=== PATIENT | male | born 1985 | race Caucasian/White ===

== ENCOUNTER 2020-04-15 12:51 | Observation (INO) ==
[2020-04-15] MEDS ORDERED: PROCHLORPERAZINE EDISYLATE 5 MG/ML VIAL IV ONE (12:56)
[2020-04-15] MEDS ORDERED: KETOROLAC TROMETHAMINE 30 MG/ML VIAL IV ONE (12:56)
[2020-04-15] MEDS ORDERED: diphenhydrAMINE HCL 50 MG/ML VIAL IV ONE ×2 (12:56→14:45)
[2020-04-15] MEDS ORDERED: NORMAL SALINE 1,000 ML IV ONE ×2 (12:56→15:56)
[2020-04-15] MEDS ORDERED: PANTOPRAZOLE SODIUM 40 MG/100 ML PIGGYBACK IV ONE (13:09)
--- NOTE | 2020-04-15 13:09 | ERNOTE ---
ER Male HPI Date of Service: 04/15/20 Stated Complaint: abd pain ER Male: other - abdominal pain Time Seen by Provider: 04/15/20 12:52 Source: patient Exam Limitations: no limitations Immunizations: IMMUNIZATION HX Immunizations Up to Date Yes History of Influenza Vaccine No Hx Pneumococcal Vaccination No Allergies/Adverse Reactions: Allergies bee venom protein (honey bee) Allergy (Severe, Verified 04/15/20 12:53) Swelling of Throat Penicillins Allergy (Severe, Verified 04/15/20 12:53) throat swelling Home Medications: HOME MEDICATIONS Albuterol Sulfate [Ventolin Hfa] 1 puff INHALATION QID PRN #1 [email or web address] 12/09/18 [Last Taken Unknown] - History of Present Illness Narrative: Patient presents to the ED via EMS for severe abdominal pain. This has been going on for 2 days. Severe left sided pain from his left flank to his left testicle. Nausea. Pain severe constant for 2 days. He is not sure if he has ever had anything like this before. Nothing particularly makes this better or worse. Has not seen anyone else for this. Timing: Present: constant Quality: Present: severe Onset Location: Present: other - left flank to left testicle Radiation: Present: other - left testicle Activities at Onset: Present: none Prior Abdominal Problems: Absent: similar symptoms Modifying Factors - (Improves): Present: other - nothing Modifying Factors - (Worsens): Present: other - nothing Associated Symptoms: Present: nausea, abdominal pain. Absent: fever/chills, dysuria, loss of bladder control Prior Treatment: Absent: recently seen Review of Systems - Review of Systems Constitutional: Absent: fever EYE: Present: no symptoms reported ENT: Present: no symptoms reported Respiratory: Present: cough Cardiology: Absent: chest pain Gastrointestinal/Abdominal: Present: See HPI Genitourinary: Absent: dysuria Neurological: Absent: weakness All Other Systems: All systems neg except as marked Medical History (Last Reviewed 04/15/20 @ 13:07 by Tony Cid MD) Asthma Surgical History: Surgical History (Last Reviewed 04/15/20 @ 13:07 by Tony Cid MD) History of esophagogastroduodenoscopy (EGD) No pertinent past medical history Family History: Family History (Last Reviewed 04/15/20 @ 13:07 by Tony Cid MD) Other No pertinent family history Social History: (Last Reviewed 04/15/20 @ 13:07 by Tony Cid MD) Tobacco: Smoking Status: Light tobacco smoker Alcohol: alcohol intake: never Substance Use: substance use type: does not use Physical Exam - Physical Exam General Appearance: Present: alert, moderate distress, other - due to pain Head Exam: Present: normal inspection, no evidence of injury Eye Exam: Normal inspection: bilateral, PERRL: bilateral Ears, Nose, Throat: Present: normal ENT inspection Neck: Present: normal inspection Respiratory: Present: no respiratory distress, normal breath sounds, no accessory muscle use, lungs clear Cardiovascular/Chest: Present: regular rate, rhythm, normal peripheral pulses Gastrointestinal/Abdominal: Present: normal bowel sounds, nondistended, soft, other - difuse left abdominal tenderness Male Genitals Exam: Present: testicular tenderness (L) Back Exam: Present: CVA tenderness (L) Extremity Exam: Present: normal inspection, normal range of motion Neurological Exam: Present: alert, no motor/sensory deficits, financial controller II-XII nml as tested Skin Exam: Present: normal color, warm/dry Progress - Results and Orders Patient's Lab Results:: I have reviewed the patient's lab results. - Vital Signs Patient's Vital Signs:: I have reviewed the patient's vital signs. Vital Signs: Vital Signs 04/15/20 12:51 Temperature 36.0 C Pulse Rate 79 Respiratory Rate 16 Blood Pressure 142/69 H O2 Sat by Pulse Oximetry 99 - CT/Ultrasound CT/Ultrasound Narrative: I reviewed the US report and CT report per radiology - Progress/Reassessment Chief Complaint: Genitourinary Problem Progress Note-Subjective: 04/15/20 16:23 Patient given IV toradol, antiemetics, tylenol, morphine. Still with severe pain despite meds. I Halo'd Dr Holder, Will admit here for NPO and pain control. He will plan on stenting tomorrow at 10am. Patient is agreeable, having too much pain to go home. I spoke with Dr Sibley who will admit with Urology consultation. Departure Clinical Impression: Ureterolithiasis, Intractable pain, Hydroureter - Departure Disposition: Still a patient Condition: Fair
[2020-04-15 13:12] LABS: Hematocrit 43.4 % (42.0-52.0); Mean Cell Volume 94.1 fl (78-100); Mean Corpuscular Hemoglobin 30.4 pg (27-31); Mean Corpuscular Hgb Conc 32.3 g/dl (32-36); Mean Platelet Volume 9.7 fl (8-11.3); Neutrophil # 4.8 K/mm3 (1.3-6.0); Platelet Count 214 K/mm3 (150-450); Red Blood Count 4.61 M/mm3 (4.7-6.0); Red Cell Distribution Width 12.1 % (11.5-14.0); White Blood Count 7.6 K/mm3 (4.0-10.5)
[2020-04-15 13:20] LABS: Cocaine Ur Negative (NEGATIVE); Urine Barbiturate Negative (NEGATIVE); Urine Benzodiazepines Negative (NEGATIVE); Urine Opiates Negative (NEGATIVE); Urine PCP Negative (NEGATIVE); Urine THC Negative (NEGATIVE)
[2020-04-15 13:24] LABS: ALT 53 U/L (19-67); AST 33 U/L (0-48); Albumin * 3.3 gm/dl (3.4-5.0); Alkaline Phosphatase * 67 U/L (50-170); Anion Gap 10.3 mmol/L (6.8-13.8); BUN/Creatinine Ratio 9.7 (9.0-21.6); Bilirubin, Total 0.2 mg/dL (0.0-1.1); Blood Urea Nitrogen 14 mg/dL (6-23); Ca. Corrected For Albumin 9.6 mg/dL (8.4-10.2); Calcium * 9.4 mg/dL (7.9-10.9); Carbon Dioxide 27.6 mmol/L (24-32.6); Chloride 105 mmol/L (97-106); Glucose * 93 mg/dL (70-110); Lipase 94 U/L (73-393); Potassium 3.9 mmol/L (3.4-4.6); Sodium 139 mmol/L (132-142); Total Protein 7.3 gm/dL (6.2-8.2)
[2020-04-15 13:30] LABS: Urine Appearance Clear (CLEAR); Urine Bilirubin Negative (NEGATIVE); Urine Color Yellow; Urine Ketone Negative (NEGATIVE)
[2020-04-15 13:31] LABS: Urine Bacteria None Seen; Urine Blood 150 /ul (NEGATIVE); Urine Nitrite Negative (NEGATIVE); Urine Protein Negative (NEGATIVE); Urine Urobilinogen Normal (NORMAL); Urine WBC None Seen /hpf (0-5)
[2020-04-15] MEDS ORDERED: ACETAMINOPHEN 1,000 MG/100 ML BTL IV ONE (14:45)
[2020-04-15] MEDS ORDERED: MORPHINE SULFATE 4 MG/ML SYRG IV ONE (15:27)
[2020-04-15] MEDS ORDERED: MORPHINE SULFATE 4 MG/ML SYRG ONE (15:28)
--- NOTE | 2020-04-15 19:15 | HP ---
Chief Complaint - Chief Complaint Date of Service: 04/15/20 Time of Service: 19:14 Chief Complaint: left flank pain History of Present Illness: History obtained from ERP, chart, and limited info from patient, as he declined to answer many of my questions. He'd been having 3 days of left flank and testicle pain. Denies having previous renal stones. Work up in the ED found a 7 mm calculus distal left ureteral calculus with moderate left hyd roureteronephrosis. Urology was contacted, and he is scheduled to go to the OR tomorrow. He denies CP or shortness of breath, and has a history of asthma. He reports using his inhaler 5 times a day. Also smokes 5 cigarettes a day. Denies alcohol or drug use. His admission UDS was positive for amphetamines, however many OTC meds can cause a positive amphetamine result on a UDS. Medical History (Last Reviewed 04/15/20 @ 13:07 by Tony Cid MD) Asthma Surgical History: Surgical History (Last Reviewed 04/15/20 @ 13:07 by Tony Cid MD) History of esophagogastroduodenoscopy (EGD) No pertinent past medical history Family History: Family History (Last Reviewed 04/15/20 @ 13:07 by Tony Cid MD) Other No pertinent family history Social History: (Last Reviewed 04/15/20 @ 13:07 by Tony Cid MD) Tobacco: Smoking Status: Light tobacco smoker Alcohol: alcohol intake: never Substance Use: substance use type: does not use Review Of Systems (GEN) - Review of Systems Respiratory: Absent: Cough, Shortness of Breath Cardiac: Absent: Chest Pain Abdominal: Present: Abdominal Pain Immunizations: IMMUNIZATION HX Immunizations Up to Date Yes History of Influenza Vaccine No Hx Pneumococcal Vaccination No Allergies/Adverse Reactions: Allergies Allergy/AdvReac Type Severity Reaction Status Date / Time bee venom protein (honey bee) Allergy Severe Swelling Verified 04/15/20 16:56 of Throat Penicillins Allergy Severe throat Verified 04/15/20 16:56 swelling Home Medications: HOME MEDICATIONS Albuterol Sulfate [Ventolin Hfa] 1 puff INHALATION QID PRN #1 [email or web address] 12/09/18 [Last Taken Unknown] Exam - Exam Vital Signs: Vital Signs - Last Taken Temp 36.4 C 04/15/20 18:10 Pulse 63 10/24/20 18:10 Resp 16 04/15/20 18:10 BP 110/76 04/15/20 18:10 Pulse Ox 98 04/15/20 18:10 Constitutional: Present: No distress, Somnolent, Looks Older than stated age Respiratory: Present: lungs clear, no respiratory distress Cardiovascular/Chest: Present: regular rate, rhythm Abdomen: Present: Normal bowel sounds Extremity: Absent: lower extremity edema Neurologic: Present: other - agitated affect Eye contact: Present: avoids eye contact Diagnostic Studies: Abnormal Lab Results 04/15/20 04/15/20 04/15/20 Range/Units 13:06 13:06 13:06 RBC 4.61 L (4.7-6.0) M/mm3 Eosinophils % 4.1 H (0.0-3.0) % Creatinine 1.44 H (0.4-1.4) mg/dL Est GFR (Non-Af Amer) 59 L D (60-130) mL/min Albumin 3.3 L (3.4-5.0) gm/dl Urine Blood 150 H (NEGATIVE) /ul Urine RBC 10-25 H (0-5) /hpf Urine Amphetamine (NEGATIVE) 04/15/20 Range/Units 13:06 RBC (4.7-6.0) M/mm3 Eosinophils % (0.0-3.0) % Creatinine (0.4-1.4) mg/dL Est GFR (Non-Af Amer) (60-130) mL/min Albumin (3.4-5.0) gm/dl Urine Blood (NEGATIVE) /ul Urine RBC (0-5) /hpf Urine Amphetamine Positive H (NEGATIVE) Laboratory Results WBC 7.6 K/mm3 (4.0-10.5) 04/15/20 13:06 RBC 4.61 M/mm3 (4.7-6.0) L 04/15/20 13:06 Hgb 14.0 gm/dL (13.5-18.0) 04/15/20 13:06 Hct 43.4 % (42.0-52.0) 04/15/20 13:06 MCV 94.1 fl (78-100) 04/15/20 13:06 MCH 30.4 pg (27-31) 04/15/20 13:06 MCHC 32.3 g/dl (32-36) 04/15/20 13:06 RDW 12.1 % (11.5-14.0) 04/15/20 13:06 Plt Count 214 K/mm3 (150-450) 04/15/20 13:06 MPV 9.7 fl (8-11.3) 04/15/20 13:06 Immature Gran % (Auto) 0.10 % (0.001-0.429) 04/15/20 13:06 Immature Gran # (Auto) 0.01 K/mm3 (0.000-0.0310) 04/15/20 13:06 Neutrophils % 63.0 % (42-75.0) 04/15/20 13:06 Lymphocytes % 23.5 % (20-51) 04/15/20 13:06 Monocytes % 8.8 % (0.0-9) 04/15/20 13:06 Eosinophils % 4.1 % (0.0-3.0) H 04/15/20 13:06 Basophils % 0.5 % (0.0-1.0) 04/15/20 13:06 Nucleated RBC % 0.0 k/mm3 (0-1) 04/15/20 13:06 Neutrophils # 4.8 K/mm3 (1.3-6.0) 04/15/20 13:06 Lymphocytes # 1.78 k/mm3 (1.5-3.5) 04/15/20 13:06 Monocytes # 0.7 k/mm3 (0.0-1.0) 04/15/20 13:06 Eosinophils # 0.3 k/mm3 (0.0-0.7) 04/15/20 13:06 Absolute Basophils 0.0 k/mm3 (0.0-0.1) 04/15/20 13:06 Sodium 139 mmol/L (132-142) 04/15/20 13:06 Plasma Sodium 139 mmol/L (130-142) 04/15/20 13:06 Potassium 3.9 mmol/L (3.4-4.6) 04/15/20 13:06 Chloride 105 mmol/L (97-106) 04/15/20 13:06 Carbon Dioxide 27.6 mmol/L (24-32.6) 04/15/20 13:06 Anion Gap 10.3 mmol/L (6.8-13.8) 04/15/20 13:06 BUN 14 mg/dL (6-23) 04/15/20 13:06 Creatinine 1.44 mg/dL (0.4-1.4) H 04/15/20 13:06 Est GFR (Non-Af Amer) 59 mL/min (60-130) L D 04/15/20 13:06 BUN/Creatinine Ratio 9.7 (9.0-21.6) 04/15/20 13:06 Random Glucose 93 mg/dL (70-110) 04/15/20 13:06 Calcium 9.4 mg/dL (7.9-10.9) 04/15/20 13:06 Calcium Adj for Albumin 9.6 mg/dL (8.4-10.2) 04/15/20 13:06 Total Bilirubin 0.2 mg/dL (0.0-1.1) 04/15/20 13:06 AST 33 U/L (0-48) 04/15/20 13:06 ALT 53 U/L (19-67) 04/15/20 13:06 Alkaline Phosphatase 67 U/L (50-170) 04/15/20 13:06 Total Protein 7.3 gm/dL (6.2-8.2) 04/15/20 13:06 Albumin 3.3 gm/dl (3.4-5.0) L 04/15/20 13:06 Lipase 94 U/L (73-393) 04/15/20 13:06 Urine Color Yellow 04/15/20 13:06 Urine Appearance Clear (CLEAR) 04/15/20 13:06 Urine pH 6.0 pH (5.0-7.0) 04/15/20 13:06 Ur Specific Clare 1.020 SP.GR. (1.005-1.030) 04/15/20 13:06 Urine Protein Negative mg/dL (NEGATIVE) 04/15/20 13:06 Urine Glucose (UA) Negative mg/dL (NEGATIVE) 04/15/20 13:06 Urine Ketones Negative mg/dL (NEGATIVE) 04/15/20 13:06 Urine Blood 150 /ul (NEGATIVE) H 04/15/20 13:06 Urine Nitrate Negative (NEGATIVE) 04/15/20 13:06 Urine Bilirubin Negative mg/dl (NEGATIVE) 04/15/20 13:06 Urine Urobilinogen Normal EU/dl (NORMAL) 04/15/20 13:06 Ur Leukocyte Esterase Negative /ul (NEGATIVE) 04/15/20 13:06 Urine RBC 10-25 /hpf (0-5) H 04/15/20 13:06 Urine WBC None seen /hpf (0-5) 04/15/20 13:06 Ur Epithelial Cells None seen /hpf (0-5) 04/15/20 13:06 Urine Bacteria None seen (NONE) 04/15/20 13:06 Urine Culture Comments No culture indicated 04/15/20 13:06 Urine Opiates Screen Negative (NEGATIVE) 04/15/20 13:06 Barbiturate Screen Negative (NEGATIVE) 04/15/20 13:06 Ur Phencyclidine Scrn Negative (NEGATIVE) 04/15/20 13:06 Urine Amphetamine Positive (NEGATIVE) H 04/15/20 13:06 U Benzodiazepines Scrn Negative (NEGATIVE) 04/15/20 13:06 Urine Cocaine Screen Negative (NEGATIVE) 04/15/20 13:06 Urine Marijuana (THC) Negative (NEGATIVE) 04/15/20 13:06 Ethyl Alcohol Less than 3.0 mg/dL (0.0-10.0) 04/15/20 13:06 SARS-CoV-2 (PCR) Not detected (NotDetected) 04/15/20 16:06 Assessment/Plan - Assessment/Plan (1) Ureterolithiasis Assessment: Per the ERP, urology has been consulted, and will be placing a stent in the morning. He is sleeping and difficult to waken, so pain is currently controlled after IV ofirmev, 30 mg IV toradol, and 4 mg IV morphine. Will continue 2 mg morphine q3h prn, and zofran q6h prn. Negative COVID. OK to proceed with surgery. Problem: Acute (2) Hydroureter Problem: Acute (3) Asthma Problem: Chronic Qualifiers: Asthma severity: unspecified severity Asthma persistence: intermittent Asthma complication type: unspecified Qualified Code(s): J45.20 - Mild intermittent asthma, uncomplicated
[2020-04-15] MEDS ORDERED: MORPHINE SULFATE 2 MG/ML DISP.SYRIN IV PRN (19:31)
[2020-04-15] MEDS ORDERED: ONDANSETRON HCL/PF 2 MG/ML VIAL IV PRN (19:32)
[2020-04-15] MEDS ORDERED: ALBUTEROL SULFATE 200 PUFF INHALER IH PRN (19:33)
[2020-04-15] MEDS ORDERED: NORMAL SALINE 1,000 ML IV PRN (21:55)
[2020-04-15] MEDS ORDERED: MORPHINE SULFATE 2 MG/ML DISP.SYRIN IV ONE (23:13)
[2020-04-15] MEDS ORDERED: MORPHINE SULFATE 2 MG/ML DISP.SYRIN ONE (23:18)
[2020-04-16] MEDS: MORPHINE SULFATE 4 MG/ML SYRG IV PRN ×2 (02:23→06:28)
[2020-04-16] MEDS: NORMAL SALINE 1,000 ML IV PRN ×2 (04:18→09:34)
[2020-04-16] MEDS ORDERED: LEVOFLOXACIN IN DEXTROSE 5 % 500 MG/100 ML BAG IV SCH (05:00)
[2020-04-16] MEDS ORDERED: ALBUTEROL SULFATE 2.5 MG/0.5 ML VIAL.NEB IH PRN (07:30)
[2020-04-16] MEDS ORDERED: LIDOCAINE HCL 20 ML VIAL ONE (07:37)
[2020-04-16] MEDS ORDERED: KETOROLAC TROMETHAMINE 30 MG/ML VIAL ONE (07:37)
[2020-04-16] MEDS ORDERED: fentaNYL CITRATE/PF 50 MCG/ML AMPUL ONE (07:37)
[2020-04-16] MEDS ORDERED: PROPOFOL VIAL IV ONE (07:37)
[2020-04-16] MEDS ORDERED: GLYCOPYRROLATE 0.2 MG/ML VIAL ONE (07:37)
[2020-04-16] MEDS ORDERED: ONDANSETRON HCL/PF 2 MG/ML VIAL ONE (07:37)
[2020-04-16] MEDS ORDERED: NEOSTIGMINE METHYLSULFATE 1 MG/ML VIAL ONE (07:37)
[2020-04-16] MEDS ORDERED: ROCURONIUM BROMIDE 10 MG/ML VIAL ONE (07:37)
[2020-04-16] MEDS ORDERED: SUCCINYLCHOLINE CHLORIDE 20 MG/ML VIAL ONE (07:38)
--- NOTE | 2020-04-16 07:52 | CONS ---
HPI - General Narrative: 35-year-old male first-time stone former development of severe left-sided flank pain and nausea yesterday. IV medicine required to control also required admission to do so. Has been n.p.o. Imaging with distal 6 to 8 mm stone left hydroureteronephrosis all the way down to stone and a small renal stone. Unable to pass overnight. 04/11 CT stone protocol FM: Left hydroureteronephrosis down to a 6 to 8 mm stone a few centimeters away from ureteric orifice. Small left lower pole calculus. Location: Left flank Duration: Days Severity/Stage: Severe Associated Sx's: Left-sided flank pain and nausea Modifying factors: IV medicine has helped but still symptomatic, unable to pass on own unlikely to do so Quality: Colicky Past medical history: Asthma, no prior stone Past surgical history: No prior stone surgery Family history: Noncontributory Social history: Smoker Review of systems: General: No fevers Lungs: Occasional asthma, smokes, no pulmonary symptoms, no known coronavirus exposure Heart: No cardiac issues, no chest pain GI: Has had nausea Endocrine: Not diabetic : Some urgency 14 point review of systems otherwise negative, important positives noted - History of Present Illness Allergies/Adverse Reactions: Allergies bee venom protein (honey bee) Allergy (Severe, Verified 04/15/20 16:56) Swelling of Throat Penicillins Allergy (Severe, Verified 04/15/20 16:56) throat swelling Home Medications: Home Medications Medication Instructions Recorded Last Taken Albuterol Sulfate [Ventolin Hfa] 1 puff INHALATION QID PRN #1 12/09/18 Unknown hfa.aer.ad Procedures Application of splint (07/12/11) Closure of skin and subcutaneous tissue of other sites (05/28/04) Insertion of endotracheal tube (03/06/09) Insertion of indwelling urinary catheter (03/06/09) Other incision with drainage of skin and subcutaneous tissue (02/03/08) Medications - Medications Current Medications: Current Medications Sodium Chloride (Sodium Chloride 0.9%) 1,000 mls @ 150 mls/hr IV .Q6H40M PRN PRN Reason: HYDRATION Stop: 05/15/20 23:12 Last Admin: 04/16/20 04:18 Dose: 150 mls/hr Documented by: Morphine Sulfate (Morphine Sulfate) 4 mg IV Q3H PRN PRN Reason: Severe Pain (pain scale 7-10) Stop: 05/15/20 23:18 Last Admin: 04/16/20 06:28 Dose: 4 mg Documented by: Physical Examination - Exam Narrative: General: Looked uncomfortable but not in severe distress during my examination, nontoxic Psych: Appropriate affect, has decision-making capacity/insight HEENT: EOM grossly intact no scleral icterus Lungs: Respirations unlabored, no audible wheezing Abdomen: Thin, benign Neuro: No gross focal deficits Extremities: Moves all 4, perfused, good fine dexterity Cardiovascular: Pulse regular Skin: No obvious rash or bruising on visible skin Back: No CVA tenderness Vital Signs: Vital Signs - Last Taken Temp 36.9 C 04/16/20 06:20 Pulse 59 L 04/16/20 06:20 Resp 12 04/16/20 06:20 BP 111/80 04/16/20 06:20 Pulse Ox 96 04/16/20 06:20 O2 Oxygen Delivery Method Room Air - Results and Findings: Narrative: #1 large left distal ureteral calculus with significant symptomatology despite IV medicine and failed trial of passage: Probability of passing based on size low, patient symptomatic, urgent secondary to above. My recommendation would be cystoscopy with retrogrades and attempted left ureteroscopy with laser/basket versus simply stenting depending on intraoperative findings. Risks discussed including bleeding/infection/potential injury to ureter including evulsion/stricture/perforation. Typical stent symptoms discussed. Understands possibility may simply stent and fight another day if infection or ureter narrow. Patient understands risks and wants to proceed. Lab/Microbiology results last 24 hrs: Abnormal/Pending Laboratory Last 24 HRS 04/15/20 04/15/20 04/15/20 13:06 13:06 13:06 RBC Eosinophils % Creatinine 1.44 H Est GFR (Non-Af Amer) 59 L D Albumin 3.3 L Urine Blood 150 H Urine RBC 10-25 H Urine Amphetamine Positive H 04/15/20 13:06 RBC 4.61 L Eosinophils % 4.1 H Creatinine Est GFR (Non-Af Amer) Albumin Urine Blood Urine RBC Urine Amphetamine
[2020-04-16] MEDS ORDERED: NALOXONE HCL 0.4 MG/ML VIAL IV PRN (07:59)
[2020-04-16] MEDS ORDERED: HYDROmorphone HCL 2 MG/ML VIAL IV PRN (07:59)
--- NOTE | 2020-04-16 07:59 | ANES ---
Anesthesia Pre Procedure Eval Vitals/Labs: Last Vital Signs Temp 36.9 C 04/16/20 06:20 Pulse 59 L 04/16/20 06:20 Resp 12 04/16/20 06:20 BP 111/80 04/16/20 06:20 Pulse Ox 96 04/16/20 06:20 HOME MEDICATIONS Albuterol Sulfate [Ventolin Hfa] 1 puff INHALATION QID PRN #1 [email or web address] 12/09/18 [Last Taken Unknown] Ciprofloxacin HCl [Cipro] 500 mg PO BID #6 tab 04/16/20 [Last Taken Unknown] HYDROcodone/ACETAMINOPHEN [Hydrocodon-Acetaminophen 5-325] 1 each PO Q6H PRN #14 tablet 04/16/20 [Last Taken Unknown] Oxybutynin Chloride [Ditropan] 5 mg PO BID #30 tab 04/16/20 [Last Taken Unknown] Polyethylene Glycol 3350 [Miralax] 17 gm PO DAILY PRN #510 gm 04/16/20 [Last Taken Unknown] traMADol HCL [Tramadol HCl] 50 mg PO Q4H PRN #14 tablet 04/16/20 [Last Taken Unknown] Allergies/Adverse Reactions: Allergies Allergy/AdvReac Type Severity Reaction Status Date / Time bee venom protein (honey bee) Allergy Severe Swelling Verified 04/15/20 16:56 of Throat Penicillins Allergy Severe throat Verified 04/15/20 16:56 swelling - Planned Procedure Planned Procedure: lithrotripsy Medication List Reviewed:: Yes Allergies Verified: Yes Medical History (Last Reviewed 04/16/20 @ 07:59 by Veto Galo CRNA) Asthma Surgical History (Last Reviewed 04/16/20 @ 07:59 by Veto Galo CRNA) History of esophagogastroduodenoscopy (EGD) No pertinent past medical history Family History (Last Reviewed 04/16/20 @ 07:59 by Veto Galo CRNA) Other No pertinent family history - Family Anesthesia History Family History:: no untoward family reactions to anesthesia, no familial bleeding tendencies, no family history of clotting disorders, no family history of premature - Airway/Neck/Teeth Within Normal Limits:: Yes Teeth Condition: intact Mallampatti Score: 2 Thyromental (T-M) distance: > 6 cm Mandibulo Hyoid distance: > 3 cm - Respiratory Respiratory History: asthma Respiratory Physical: lungs clear Smoking Status: Current every day smoker Discussed smoking cessation including day of surgery: No Sleep Apnea currently treated: No Sleep Apnea by current assessment: No Discussed Risks/Treatment of TERI: No - Cardiovascular Tolerate Activity: Good Heart Sounds: S1 & S2, Regular - Gastrointestinal NPO since: mn - Anesthesia Assessment and Plan ASA Class: PS, II, E Anesthesia Type Plan: General ET
--- NOTE | 2020-04-16 08:03 | OR ---
Operative Report - Dictated Report Narrative: Location: Main OR Anesthesia: General Preoperative diagnosis: Left distal ureteral stone(s). Postoperative diagnosis: same Procedure: #1 Cystoscopy with left retrograde pyelogram(s). #2 Left semirigid ureteroscopy with laser lithotripsy and placement of a 5 by multilength double J stent. Indications: 35-year-old male severely symptomatic large distal ureteral calculus post admission, failed trial of passage, marginal control and IV medication declared urgent secondary to above elected to move forward with above-mentioned procedure after evaluation and management today. Procedure: Informed consent obtained. Risks, benefits, alternatives and risks to the alternatives were previously discussed. General endotracheal anesthesia induced. Placed in the dorsal lithotomy position. Prepped and draped. Timeout taken per protocal. Scope introduced into the urethra and navigated towards the bladder. Quick cystoscopy without tumors, stones or suspicious lesions. Left retrograde was obtained and interpreted by Dr. Mcadams using a 5 Ecuadorean endhole catheter Left: 5 Ecuadorean catheter introduced. 5 to 7cc of Isovue were injected to perform the retrograde. Distal intramural ureter slightly narrowed followed by filling defect in known location of the stone that was pretty large followed by transition to hydronephrosis everything consistent with what I saw on CT. Browning wire introduced. Semirigid ureteroscope navigated into ureter. Stone encountered and fragmented using the 270 micron-holmium laser with an energy of 0.3-0.6 joules and a rate of 40 hertz. Stone appeared adequately fragmented some exited in the bladder. 5 by multi length double-J stent was placed over the secured safety wire. Patient tolerated the procedure and transferred to recovery. EBL: 0 cc Specimen: None sent. Condition: Tolerated procedure. Important findings: Distal stone treated and stented FOLLOW UP: We will arrange for locum's to remove Friday in [place]. If patient wants to remove sooner he needs to call the office Friday.
--- NOTE | 2020-04-16 09:08 | ANES ---
Post Anesthesia Discharge - Transfer of Care Transfer of Care handoff given to nurse: Yes - Discharge from PACU Discharge from PACU when meets criteria: Yes - Discharge to ASU Discharge to ASU-no complications/pt stable: Yes
--- NOTE | 2020-04-16 09:08 | ANES ---
Post Anesthesia Assessment - Vital Signs Vitals: Last Vital Signs Temp 36.3 C 04/16/20 09:05 Pulse 80 04/16/20 09:05 Resp 18 04/16/20 09:05 BP 117/78 04/16/20 09:05 Pulse Ox 99 04/16/20 09:05 Airway Patency: Normal - Mental Status Level Of Consciousness: Awake - Pain Level Pain Score: 0 - N/V Assessment Nausea/Vomiting Presence: None Dehydration:: No
--- NOTE | 2020-04-16 09:35 | PN ---
Subjective - Date and Time Seen Date: 04/16/20 Time: 09:34 Subjective Narrative: Patient seen after return from the OR. He is still having pain, though it's not as intense. Is asking to eat. Objective - Vitals Vitals: Last Vital Signs Temp 36.3 C 04/16/20 09:15 Pulse 50 L 04/16/20 09:15 Resp 12 04/16/20 09:15 BP 124/73 04/16/20 09:15 Pulse Ox 100 04/16/20 09:15 - Abnormal Lab Findings Abnormal Lab Findings: Abnormal Lab Results 04/15/20 04/15/20 04/15/20 Range/Units 13:06 13:06 13:06 RBC 4.61 L (4.7-6.0) M/mm3 Eosinophils % 4.1 H (0.0-3.0) % Creatinine 1.44 H (0.4-1.4) mg/dL Est GFR (Non-Af Amer) 59 L D (60-130) mL/min Albumin 3.3 L (3.4-5.0) gm/dl Urine Blood 150 H (NEGATIVE) /ul Urine RBC 10-25 H (0-5) /hpf Urine Amphetamine (NEGATIVE) 04/15/20 Range/Units 13:06 RBC (4.7-6.0) M/mm3 Eosinophils % (0.0-3.0) % Creatinine (0.4-1.4) mg/dL Est GFR (Non-Af Amer) (60-130) mL/min Albumin (3.4-5.0) gm/dl Urine Blood (NEGATIVE) /ul Urine RBC (0-5) /hpf Urine Amphetamine Positive H (NEGATIVE) Assessment/Plan - Problems/Diagnosis (1) Ureterolithiasis Problem: Acute (2) Hydroureter Problem: Acute (3) Asthma Problem: Chronic Qualifiers: Asthma severity: unspecified severity Asthma persistence: intermittent Asthma complication type: unspecified Qualified Code(s): J45.20 - Mild intermittent asthma, uncomplicated
--- NOTE | 2020-04-16 13:35 | DS ---
(1) Ureterolithiasis Problem: Acute (2) Hydroureter Problem: Acute (3) Asthma Problem: Chronic Qualifiers: Asthma severity: unspecified severity Asthma persistence: intermittent Asthma complication type: unspecified Qualified Code(s): J45.20 - Mild intermittent asthma, uncomplicated Date of Discharge:: 04/16/20 Hospital Course: Patient presented to the ED with 3 days of left flank and testicle pain. Denies having previous renal stones. Work up in the ED found a 7 mm calculus distal left ureteral calculus with moderate left hydroureteronephrosis. Urology was consulted, and he went to the OR the morning after admission for cystoscopy with left retrograde pyelogram, and left semirigid ureteroscopy with laser lithotripsy and placement of a 5 by multilength double J stent. His pain was not as intense after this procedure, and he was able to urinate. He felt comfortable going home on the day of DC. Meds sent by urology. He is to have the stent removed via [facility] urologist on April 21. Procedures Performed: see notes below - Cystoscopy with left retrograde pyelogram, Left semirigid ureteroscopy with laser lithotripsy and placement of a 5 by multilength double J stent. Results and Findings: Lab Pending Results 04/15/20 13:06: WBC 7.6, RBC 4.61 L, Hgb 14.0, Hct 43.4, MCV 94.1, MCH 30.4, MCHC 32.3, RDW 12.1, Plt Count 214, MPV 9.7, Immature Gran % (Auto) 0.10, Immature Gran # (Auto) 0.01, Neutrophils % 63.0, Lymphocytes % 23.5, Monocytes % 8.8, Eosinophils % 4.1 H, Basophils % 0.5, Nucleated RBC % 0.0, Neutrophils # 4.8, Lymphocytes # 1.78, Monocytes # 0.7, Eosinophils # 0.3, Absolute Basophils 0.0 04/15/20 13:06: Sodium 139, Plasma Sodium 139, Potassium 3.9, Chloride 105, Carbon Dioxide 27.6, Anion Gap 10.3, BUN 14, Creatinine 1.44 H, Est GFR (Non-Af Amer) 59 L D, BUN/Creatinine Ratio 9.7, Random Glucose 93, Calcium 9.4, Calcium Adj for Albumin 9.6, Total Bilirubin 0.2, AST 33, ALT 53, Alkaline Phosphatase 67, Total Protein 7.3, Albumin 3.3 L, Lipase 94, Ethyl Alcohol Less than 3.0 04/15/20 13:06: Urine Color Yellow, Urine Appearance Clear, Urine pH 6.0, Ur Specific [place] 1.020, Urine Protein Negative, Urine Glucose (UA) Negative, Urine Ketones Negative, Urine Blood 150 H, Urine Nitrate Negative, Urine Bilirubin Negative, Urine Urobilinogen Normal, Ur Leukocyte Esterase Negative, Urine RBC 10-25 H, Urine WBC None seen, Ur Epithelial Cells None seen, Urine Bacteria None seen, Urine Culture Comments No culture indicated 04/15/20 13:06: Urine Opiates Screen Negative, Barbiturate Screen Negative, Ur Phencyclidine Scrn Negative, Urine Amphetamine Positive H, U Benzodiazepines Scrn Negative, Urine Cocaine Screen Negative, Urine Marijuana (THC) Negative 04/15/20 16:06: SARS-CoV-2 (PCR) Not detected Discharge Location: Home Disposition: Home self-care Condition: Fair Discharge Activity: Activity as tolerated Discharge Diet: General/regular food Problem Oriented Discharge Instructions to Patient/Family: Kidney Stones, [id number], Lithotripsy, Care After Additional Patient Instructions (free text): [facility] will call you this week with a time for stent removal in [place] on April 21. If you want it remove sooner you need to call Urology Dr. Mcadams office on Friday. Prescriptions (Any new or edited meds): Ciprofloxacin HCl [Cipro] 500 mg PO BID #6 tab Transmission Status: Received by [facility] #[id number] Oxybutynin Chloride [Ditropan] 5 mg PO BID #30 tab Transmission Status: Received by [facility] #[id number] HYDROcodone/ACETAMINOPHEN [Hydrocodon-Acetaminophen 5-325] 1 ea PO Q6H PRN #14 tab PRN Reason: Moderate Pain (Pain Scale 4-6) Transmission Status: Received by [facility] #[id number] Polyethylene Glycol 3350 [Miralax] 17 gm PO DAILY PRN #510 gm PRN Reason: Constipation Transmission Status: Received by [facility] #[id number] traMADol HCL [Tramadol HCl] 50 mg PO Q4H PRN #14 tab PRN Reason: Mild Pain (Pain Scale 1-3) Transmission Status: Received by [facility] #[id number] Complete Home Medications List: Complete Home Medication List: Albuterol Sulfate [Ventolin Hfa] 1 puff INHALATION QID PRN #1 hfa.aer.ad 12/09/18 Ciprofloxacin HCl [Cipro] 500 mg PO BID #6 tab 04/16/20 HYDROcodone/ACETAMINOPHEN [Hydrocodon-Acetaminophen 5-325] 1 ea PO Q6H PRN #14 tab 04/16/20 Oxybutynin Chloride [Ditropan] 5 mg PO BID #30 tab 04/16/20 Polyethylene Glycol 3350 [Miralax] 17 gm PO DAILY PRN #510 gm 04/16/20 traMADol HCL [Tramadol HCl] 50 mg PO Q4H PRN #14 tab 04/16/20 Forms: Patient Portal Registration
[2020-04-16 14:08] VITALS: BP 103/69
== END 2020-04-16 13:50 | disposition home or self-care (01) ==
LOC: ER 12:51 → MS 12:51
PROVIDERS: ADMIT Family Medicine; ATTEND Family Medicine

== ENCOUNTER 2020-04-25 17:32 | Observation (INO) ==
[2020-04-25 18:01] LABS: Urine Bilirubin 1 mg/dl (NEGATIVE); Urine Blood 250 /ul (NEGATIVE); Urine Ketone 5 mg/dL (NEGATIVE); Urine Nitrite Negative (NEGATIVE); Urine Protein 100 mg/dL (NEGATIVE); Urine Specific Gravity 1.025 SP.GR. (1.005-1.030); Urine Urobilinogen Normal (NORMAL)
--- NOTE | 2020-04-25 18:03 | ERNOTE ---
<Guilherme Mustafa - Last Filed: 04/25/20 19:44> Abdominal HPI - General Chief Complaint: Abdominal Pain Time Seen by Provider: 04/25/20 17:52 Source: patient Exam Limitations: no limitations - Immun/Allergies/Home Medications Immunizatons: IMMUNIZATION HX Immunizations Up to Date Yes History of Influenza Vaccine No Hx Pneumococcal Vaccination No Allergies/Adverse Reactions: Allergies bee venom protein (honey bee) Allergy (Severe, Verified 04/15/20 16:56) Swelling of Throat Penicillins Allergy (Severe, Verified 04/15/20 16:56) throat swelling Home Medications: HOME MEDICATIONS Albuterol Sulfate [Ventolin Hfa] 1 puff INHALATION QID PRN #1 hfa.aer.ad 12/09/18 [Last Taken Unknown] Ciprofloxacin HCl [Cipro] 500 mg PO BID #6 tab 04/16/20 [Last Taken Unknown] HYDROcodone/ACETAMINOPHEN [Hydrocodon-Acetaminophen 5-325] 1 ea PO Q6H PRN #14 tab 04/16/20 [Last Taken Unknown] Oxybutynin Chloride [Ditropan] 5 mg PO BID #30 tab 04/16/20 [Last Taken Unknown] Polyethylene Glycol 3350 [Miralax] 17 gm PO DAILY PRN #510 gm 04/16/20 [Last Taken Unknown] traMADol HCL [Tramadol HCl] 50 mg PO Q4H PRN #14 tab 04/16/20 [Last Taken Unknown] - History of Present Illness Narrative: Patient states a week ago he was diagnosed with a 9 mm kidney stone on the left. He states this week Dr. Holder did a laser lithotripsy placed a ureteral stent and was given pain medications. Patient states he has not passed any stones and has had errol hematuria since that time. He states he continues to have severe pain despite the pain medications. Patient was given 30 mg of Toradol IV and 100 mcg of fentanyl IV in the ambulance in route here Timing: getting worse Quality: severe, sharpness Prior Abdominal Problems: Present: similar symptoms Prior Treatment: Present: recently seen, treated by physician Review of Systems - Review of Systems Constitutional: Absent: recent illness, fever, chills ENT: Absent: nose congestion, nasal drainage Respiratory: Absent: shortness of breath, cough Gastrointestinal/Abdominal: Present: nausea, vomiting, abdominal pain Genitourinary: Present: See HPI Musculoskeletal: Present: back pain Skin: Present: rash Endocrine: Present: excessive sweating Medical History (Last Reviewed 04/25/20 @ 18:01 by Guilherme Mustafa DO) Asthma Surgical History: Surgical History (Last Reviewed 04/25/20 @ 18:01 by Guilherme Mustafa DO) History of esophagogastroduodenoscopy (EGD) No pertinent past medical history Family History: Family History (Last Reviewed 04/25/20 @ 18:01 by Guilherme Mustafa DO) Other No pertinent family history Social History: (Last Reviewed 04/25/20 @ 18:01 by Guilherme Mustafa DO) Tobacco: Smoking Status: Current every day smoker Alcohol: alcohol intake: never Substance Use: substance use type: does not use Physical Exam - Physical Exam General Appearance: Present: wd/wn, alert, moderate distress Head Exam: Present: normal inspection, no evidence of injury Neck: Present: normal inspection, nontender, supple Respiratory: Present: no respiratory distress, no accessory muscle use Gastrointestinal/Abdominal: Present: nondistended, tenderness - diffuse, guarding. Absent: rebound Back Exam: Present: no CVA tenderness Extremity Exam: Present: normal inspection, normal range of motion, no edema Neurological Exam: Present: alert, oriented, normal mood/affect Skin Exam: Present: normal color, warm/dry Lymphatic Exam: Present: no adenopathy Progress - Results and Orders Patient's Lab Results:: I have reviewed the patient's lab results. Results and Orders: Laboratory Tests 04/25/20 04/25/20 04/25/20 17:50 18:34 18:34 WBC 4.0 Hgb 16.8 Hct 51.3 Plt Count 281 Neutrophils % 80.1 H Sodium 136 Potassium 4.9 H D Chloride 103 Anion Gap 9.7 BUN 21 Creatinine 1.52 H Random Glucose 136 H Calcium 9.8 Total Bilirubin 0.7 AST 33 ALT 49 Alkaline Phosphatase 76 Urine Color Yellow Urine Appearance Cloudy Urine pH 6.0 Ur Specific [place] 1.025 Urine Protein 100 H Urine Glucose (UA) Negative Urine Ketones 5 Urine Blood 250 H Urine Nitrate Negative Ur Leukocyte Esterase 75 H Urine RBC >50 H Urine Bacteria 1+ H Urine Culture Comments Culture to follow - Vital Signs Patient's Vital Signs:: I have reviewed the patient's vital signs. Vital Signs: Vital Signs 04/25/20 17:39 Temperature 37.1 C Pulse Rate 120 H Respiratory Rate 18 Blood Pressure 84/45 L O2 Sat by Pulse Oximetry 94 - X-Ray X-Ray #1 X-Ray: abdomen Interpretation: Interp. by me X-ray Comments: Air-fluid levels and dilated later loops of bowel throughout the abdomen. Question of free air under the left hemidiaphragm versus gastric air and distal esophagus air also. - Progress/Reassessment Chief Complaint: Abdominal Pain Progress Note-Subjective: 04/25/20 19:[address] Ayers about flat and upright films. And the possibility of free air under the left diaphragm. Armen states he very well could have a severe ileus and the air under the diaphragms could be air within the stomach and distal esophagus. He suggested CT scan to further evaluate the abdomen for obstruction free air and source of free air if there is - Transfer of Care Physician Sign Out: Guilherme Mustafa Receiving Physician: Brandi Burnette Pending Results: CT/MRI results Expected Disposition: Transfer Departure Clinical Impression: Ileus, postoperative Abdominal pain Qualifiers: Abdominal location: generalized Qualified Code(s): R10.84 - Generalized abdominal pain Bowel obstruction Qualifiers: Intestinal obstruction type: unspecified Intestinal obstruction extent: unspecified extent Qualified Code(s): K56.609 - Unspecified intestinal obstruction, unspecified as to partial versus complete obstruction - Departure Disposition: Short Term Hospital Inpatient Condition: Serious <Brandi Burnette - Last Filed: 04/26/20 01:53> Abdominal HPI - Immun/Allergies/Home Medications Immunizatons: IMMUNIZATION HX Immunizations Up to Date Yes History of Influenza Vaccine No Hx Pneumococcal Vaccination No Medical History (Last Reviewed 04/25/20 @ 18:01 by Guilherme Mustafa DO) Asthma Surgical History: Surgical History (Last Reviewed 04/25/20 @ 18:01 by Guilherme Mustafa DO) History of esophagogastroduodenoscopy (EGD) No pertinent past medical history Family History: Family History (Last Reviewed 04/25/20 @ 18:01 by Guilherme Mustafa DO) Other No pertinent family history Social History: (Last Reviewed 04/25/20 @ 18:01 by Guilherme Mustafa DO) Tobacco: Smoking Status: Current every day smoker Alcohol: alcohol intake: never Substance Use: substance use type: does not use Progress - Vital Signs Vital Signs: Vital Signs 04/25/20 17:39 04/25/20 19:31 04/25/20 22:27 Temperature 37.1 C Pulse Rate 120 H 98 78 Respiratory Rate 18 16 15 Blood Pressure 84/45 L 95/46 153/89 H O2 Sat by Pulse Oximetry 94 96 96 - CT/Ultrasound CT/Ultrasound Narrative: CT abdomen/pelvis Impression: Appropriately positioned left enphroureteral stent. Mild diffuse small bowel dilatiation, most suggestive of ileus. Questionable focal biliary ductal dilatation within the right hepatic lobe. Recommend consideration for follow-up MRI/MRCP. Cortez Ngo DO Diplomate of the [place] [employer] of Rad[employer] - Progress/Reassessment Progress Note-Subjective: 04/26/20 00:43 Patient has not improved enough to go home. He is still having quite a bit of pain. I called Dr. Babb, he is the administration specialist physician yazan. We discussed the patient and my thought to place him in an OPS admission for the ileus, see if IV fluid and not eating would improve the ileus and resolve the problem. Dr. Babb agreed to admit the patient with ileus care. 04/26/20 01:52 Patient's COVID test is negative. I will write orders to have him admitted to an observation bed.
[2020-04-25 18:08] LABS: Urine Appearance Cloudy (CLEAR); Urine Color Yellow
[2020-04-25 18:09] LABS: Urine Bacteria 1+; Urine RBC >50 /hpf (0-5); Urine WBC 0-5 /hpf (0-5)
[2020-04-25 18:42] LABS: Hematocrit 51.3 % (42.0-52.0); Hemoglobin 16.8 gm/dL (13.5-18.0); Mean Cell Volume 91.9 fl (78-100); Mean Corpuscular Hemoglobin 30.1 pg (27-31); Mean Corpuscular Hgb Conc 32.7 g/dl (32-36); Mean Platelet Volume 9.6 fl (8-11.3); Neutrophil # 3.2 K/mm3 (1.3-6.0); Neutrophil % 80.1 % (42-75.0); Platelet Count 281 K/mm3 (150-450); Red Blood Count 5.58 M/mm3 (4.7-6.0); Red Cell Distribution Width 12.4 % (11.5-14.0)
[2020-04-25 18:56] LABS: Albumin * 3.6 gm/dl (3.4-5.0); Anion Gap 9.7 mmol/L (6.8-13.8); BUN/Creatinine Ratio 13.8 (9.0-21.6); Bilirubin, Total 0.7 mg/dL (0.0-1.1); Ca. Corrected For Albumin 9.8 mg/dL (8.4-10.2); Calcium * 9.8 mg/dL (7.9-10.9); Carbon Dioxide 28.2 mmol/L (24-32.6); Potassium 4.9 mmol/L (3.4-4.6)
[2020-04-25] MEDS ORDERED: NORMAL SALINE 1,000 ML IV ONE (18:59)
[2020-04-25] MEDS ORDERED: DIATRIZOATE MEGLUMINE, SODIUM 30 ML BTL PO ONE (19:12)
[2020-04-25] MEDS ORDERED: MORPHINE SULFATE 4 MG/ML SYRG IV PRN (19:19)
[2020-04-25] MEDS ORDERED: ONDANSETRON HCL/PF 2 MG/ML VIAL IV ONE ×2 (19:20→21:51)
[2020-04-25] MEDS: MORPHINE SULFATE 2 MG/ML DISP.SYRIN IV PRN ×2 (19:24→21:53)
[2020-04-25] MEDS ORDERED: MORPHINE SULFATE 4 MG/ML SYRG IV ONE ×2 (21:44→23:50)
[2020-04-25] MEDS ORDERED: ONDANSETRON HCL/PF 2 MG/ML VIAL ONE (21:49)
[2020-04-26] MEDS ORDERED: PROCHLORPERAZINE EDISYLATE 5 MG/ML VIAL IV ONE (01:06)
[2020-04-26] MEDS ORDERED: PROCHLORPERAZINE EDISYLATE 5 MG/ML VIAL IV PRN (02:00)
[2020-04-26] MEDS ORDERED: MORPHINE SULFATE 2 MG/ML DISP.SYRIN IV PRN (02:00)
[2020-04-26] MEDS: NORMAL SALINE 1,000 ML IV PRN ×3 (03:23→21:38)
[2020-04-26 08:03] LABS: Albumin * 2.6 gm/dl (3.4-5.0); Anion Gap 12.9 mmol/L (6.8-13.8); BUN/Creatinine Ratio 15.7 (9.0-21.6); Bilirubin, Total 0.6 mg/dL (0.0-1.1); Ca. Corrected For Albumin 8.5 mg/dL (8.4-10.2); Calcium * 7.7 mg/dL (7.9-10.9); Carbon Dioxide 23.7 mmol/L (24-32.6); Potassium 3.6 mmol/L (3.4-4.6); Total Protein 6.3 gm/dL (6.2-8.2)
[2020-04-26] MEDS: ACETAMINOPHEN 1,000 MG/100 ML BTL IV SCH ×3 (08:45→19:48)
--- NOTE | 2020-04-26 09:59 | HP ---
Chief Complaint - Chief Complaint Date of Service: 04/26/20 Time of Service: 08:00 Chief Complaint: Abdominal Pain History of Present Illness: John is a 35 yo male with recent history of kidney stone requiring stenting and lithotripsy on 04/16/20. He was discharged from the hospital following the procedure. He reports to the ER that he has not passed any stones and continues to have hematuria and severe abdominal pain. He was given fentanyl and toradol for his pain by EMS. He received morphine in the ER. CT showed stent in place. No evidence of further stone or obstruction. There is evidence of possible ileus. Reports are that he has been passing loose stool overnight. He has been resting with IV morphine but when awakened reports severe 10/10 abdominal. On my examination he is resting comfortably and only awakens to loud verbal. He easily falls back to sleep. He does not appear in pain, but when asked reports 10/10 abdominal pain. No evidence of fever or chills over night. Per the records he was supposed to have his stent removed last week, but he did not follow up for this procedure. Medical History (Last Updated 04/25/20 @ 18:02 by Mily Mckoy RN) History of kidney stones Asthma Surgical History: Surgical History (Last Updated 04/25/20 @ 18:02 by Mily Mckoy RN) Hx of lithotripsy History of esophagogastroduodenoscopy (EGD) No pertinent past medical history Family History: Family History (Last Reviewed 04/25/20 @ 18:01 by Guilherme Mustafa DO) Other No pertinent family history Social History: (Last Reviewed 04/25/20 @ 18:01 by Guilherme Mustafa DO) Tobacco: Smoking Status: Current every day smoker Alcohol: alcohol intake: never Substance Use: substance use type: does not use Review Of Systems (GEN) - Review of Systems Abdominal: Present: Abdominal Pain Additional Comments: Difficult to obtain due to patient sleeping and difficult to keep awake. Immunizations: IMMUNIZATION HX Immunizations Up to Date Yes History of Influenza Vaccine No Hx Pneumococcal Vaccination No Allergies/Adverse Reactions: Allergies Allergy/AdvReac Type Severity Reaction Status Date / Time bee venom protein (honey bee) Allergy Severe Swelling Verified 04/15/20 16:56 of Throat Penicillins Allergy Severe throat Verified 04/15/20 16:56 swelling Home Medications: HOME MEDICATIONS Albuterol Sulfate [Ventolin Hfa] 1 puff INHALATION QID PRN #1 hfa.aer.ad 12/09/18 [Last Taken Unknown] HYDROcodone/ACETAMINOPHEN [Hydrocodon-Acetaminophen 5-325] 1 ea PO Q6H PRN #14 tab 04/16/20 [Last Taken Unknown] Oxybutynin Chloride [Ditropan] 5 mg PO BID #30 tab 04/16/20 [Last Taken Unknown] Polyethylene Glycol 3350 [Miralax] 17 gm PO DAILY PRN #510 gm 04/16/20 [Last Taken Unknown] traMADol HCL [Tramadol HCl] 50 mg PO Q4H PRN #14 tab 04/16/20 [Last Taken Unknown] Ciprofloxacin HCl [Cipro] 500 mg PO BID PRN 04/26/20 [Last Taken Unknown] Exam - Exam Vital Signs: Vital Signs - Last Taken Temp 37.1 C 04/26/20 06:00 Pulse 120 H 04/26/20 06:39 Resp 20 04/26/20 06:00 BP 108/71 04/26/20 06:00 Pulse Ox 94 04/26/20 06:00 Constitutional: Present: Somnolent ENT Exam: Present: hearing grossly normal Eye Exam: bilateral eye: normal inspection Respiratory: Present: lungs clear, normal breath sounds, no respiratory distress Cardiovascular/Chest: Present: regular rate, rhythm, no edema Abdomen: Present: Normal bowel sounds, soft, nontender Skin Exam: Present: normal color, warm/dry, no cyanosis Diagnostic Studies: Abnormal Lab Results 04/25/20 04/25/20 04/25/20 Range/Units 17:50 18:34 18:34 Immature Gran % (Auto) 0.50 H (0.001-0.429) % Neutrophils % 80.1 H (42-75.0) % Lymphocytes % 15.0 L (20-51) % Lymphocytes # 0.60 L (1.5-3.5) k/mm3 Potassium 4.9 H D (3.4-4.6) mmol/L Carbon Dioxide (24-32.6) mmol/L Creatinine 1.52 H (0.4-1.4) mg/dL Est GFR (Non-Af Amer) 55 L (60-130) mL/min Random Glucose 136 H (70-110) mg/dL Calcium (7.9-10.9) mg/dL Albumin (3.4-5.0) gm/dl Urine Protein 100 H (NEGATIVE) mg/dL Urine Blood 250 H (NEGATIVE) /ul Urine Bilirubin 1 H (NEGATIVE) mg/dl Ur Leukocyte Esterase 75 H (NEGATIVE) /ul Urine RBC >50 H (0-5) /hpf Urine Bacteria 1+ H (NONE) 04/26/20 Range/Units 07:48 Immature Gran % (Auto) (0.001-0.429) % Neutrophils % (42-75.0) % Lymphocytes % (20-51) % Lymphocytes # (1.5-3.5) k/mm3 Potassium (3.4-4.6) mmol/L Carbon Dioxide 23.7 L (24-32.6) mmol/L Creatinine (0.4-1.4) mg/dL Est GFR (Non-Af Amer) (60-130) mL/min Random Glucose (70-110) mg/dL Calcium 7.7 L (7.9-10.9) mg/dL Albumin 2.6 L (3.4-5.0) gm/dl Urine Protein (NEGATIVE) mg/dL Urine Blood (NEGATIVE) /ul Urine Bilirubin (NEGATIVE) mg/dl Ur Leukocyte Esterase (NEGATIVE) /ul Urine RBC (0-5) /hpf Urine Bacteria (NONE) Microbiology 04/25/20 17:50 Urine Culture - Preliminary Urine,Clean Catch No Pathogens Isolated Laboratory Results WBC 4.0 K/mm3 (4.0-10.5) 04/25/20 18:34 RBC 5.58 M/mm3 (4.7-6.0) 04/25/20 18:34 Hgb 16.8 gm/dL (13.5-18.0) 04/25/20 18:34 Hct 51.3 % (42.0-52.0) 04/25/20 18:34 MCV 91.9 fl (78-100) 04/25/20 18:34 MCH 30.1 pg (27-31) 04/25/20 18:34 MCHC 32.7 g/dl (32-36) 04/25/20 18:34 RDW 12.4 % (11.5-14.0) 04/25/20 18:34 Plt Count 281 K/mm3 (150-450) 04/25/20 18:34 MPV 9.6 fl (8-11.3) 04/25/20 18:34 Immature Gran % (Auto) 0.50 % (0.001-0.429) H 04/25/20 18:34 Immature Gran # (Auto) 0.02 K/mm3 (0.000-0.0310) 04/25/20 18:34 Neutrophils % 80.1 % (42-75.0) H 04/25/20 18:34 Lymphocytes % 15.0 % (20-51) L 04/25/20 18:34 Monocytes % 3.5 % (0.0-9) 04/25/20 18:34 Eosinophils % 0.7 % (0.0-3.0) 04/25/20 18:34 Basophils % 0.2 % (0.0-1.0) 04/25/20 18:34 Nucleated RBC % 0.0 k/mm3 (0-1) 04/25/20 18:34 Neutrophils # 3.2 K/mm3 (1.3-6.0) 04/25/20 18:34 Lymphocytes # 0.60 k/mm3 (1.5-3.5) L 04/25/20 18:34 Monocytes # 0.1 k/mm3 (0.0-1.0) 04/25/20 18:34 Eosinophils # 0.0 k/mm3 (0.0-0.7) 04/25/20 18:34 Absolute Basophils 0.0 k/mm3 (0.0-0.1) 04/25/20 18:34 Sodium 134 mmol/L (132-142) 04/26/20 07:48 Plasma Sodium 134 mmol/L (130-142) 04/26/20 07:48 Potassium 3.6 mmol/L (3.4-4.6) D 04/26/20 07:48 Chloride 101 mmol/L (97-106) 04/26/20 07:48 Carbon Dioxide 23.7 mmol/L (24-32.6) L 04/26/20 07:48 Anion Gap 12.9 mmol/L (6.8-13.8) 04/26/20 07:48 BUN 18 mg/dL (6-23) 04/26/20 07:48 Creatinine 1.15 mg/dL (0.4-1.4) 04/26/20 07:48 Est GFR (Non-Af Amer) 76 mL/min (60-130) D 04/26/20 07:48 BUN/Creatinine Ratio 15.7 (9.0-21.6) 04/26/20 07:48 Random Glucose 105 mg/dL (70-110) 04/26/20 07:48 Calcium 7.7 mg/dL (7.9-10.9) L 04/26/20 07:48 Calcium Adj for Albumin 8.5 mg/dL (8.4-10.2) 04/26/20 07:48 Total Bilirubin 0.6 mg/dL (0.0-1.1) 04/26/20 07:48 AST 24 U/L (0-48) 04/26/20 07:48 ALT 33 U/L (19-67) 04/26/20 07:48 Alkaline Phosphatase 66 U/L (50-170) 04/26/20 07:48 Total Protein 6.3 gm/dL (6.2-8.2) 04/26/20 07:48 Albumin 2.6 gm/dl (3.4-5.0) L 04/26/20 07:48 Urine Color Yellow 04/25/20 17:50 Urine Appearance Cloudy (CLEAR) 04/25/20 17:50 Urine pH 6.0 pH (5.0-7.0) 04/25/20 17:50 Ur Specific [place] 1.025 SP.GR. (1.005-1.030) 04/25/20 17:50 Urine Protein 100 mg/dL (NEGATIVE) H 04/25/20 17:50 Urine Glucose (UA) Negative mg/dL (NEGATIVE) 04/25/20 17:50 Urine Ketones 5 mg/dL (NEGATIVE) 04/25/20 17:50 Urine Blood 250 /ul (NEGATIVE) H 04/25/20 17:50 Urine Nitrate Negative (NEGATIVE) 04/25/20 17:50 Urine Bilirubin 1 mg/dl (NEGATIVE) H 04/25/20 17:50 Urine Ictotest Negative (NEGATIVE) 04/25/20 17:50 Prot Sulfosalicylic Acd 1+ mg/dL (0) 04/25/20 17:50 Urine Urobilinogen Normal EU/dl (NORMAL) 04/25/20 17:50 Ur Leukocyte Esterase 75 /ul (NEGATIVE) H 04/25/20 17:50 Urine RBC >50 /hpf (0-5) H 04/25/20 17:50 Urine WBC 0-5 /hpf (0-5) 04/25/20 17:50 Ur Epithelial Cells 0-5 /hpf (0-5) 04/25/20 17:50 Urine Bacteria 1+ (NONE) H 04/25/20 17:50 Urine Culture Comments Culture to follow 04/25/20 17:50 SARS-CoV-2 (PCR) Not detected (NotDetected) 04/26/20 00:55 Assessment/Plan - Narrative Narrative: John is a 35 yo male with intractable abdominal pain. He does have a ureteral stent in place that was supposed to be removed last week, but he failed to show up to have it removed. I do not know if this could be a source to his pain. There does not appear to be further evidence of stone or obstruction. There is possible evidence of ileus but he is passing stool and I would not expect this to cause as significant pain as he reports. He overall does not appear to be in pain but reports 10/10 pain. There is potential for drug seeking behavior as he has been positive for methamphetamine on a prior admission. I do not see indication for IV morphine. He has been asking for this at any possible time and if his symptoms are from ileus, narcotic medication would only worsen the condition. I will discontinue all narcotics and treat his pain with IV tylenol and toradol prn. I will consult urology for stent removal. I am not sure if the stent being in longer than planned would cause him pain or not. Will admit to observation and consider discharge following removal of his stent. - Assessment/Plan (1) Ileus, postoperative Problem: Acute (2) Intractable pain Problem: Acute (3) Ureterolithiasis Problem: Acute (4) Retained ureteral stent Problem: Acute
[2020-04-26] MEDS ORDERED: LIDOCAINE HCL 10 APPL CARTRIDGE ONE (12:23)
[2020-04-26] MEDS ORDERED: LIDOCAINE HCL 10 APPL CARTRIDGE MM ONE (12:40)
--- NOTE | 2020-04-26 12:49 | OR ---
Operative Report - Dictated Report Narrative: Procedure note: Cystoscopy with left ureteral stent removal Preoperative diagnosis: Retained left ureteral stent Postoperative diagnosis: Same Indications: The patient is a 35-year-old male who underwent recent cystoscopy with ureteroscopy on the left side with laser lithotripsy and stent placement. The patient is now hospitalized with ileus probably due to opioid consumption and his scheduled for removal of his ureteral catheter and that will be done at this hospitalization. The patient is aware of the preparation technique and convalescence. Description: The patient is brought to the cystoscopy suite. Consent has been obtained. Timeout was accomplished and verified. The patient is supine. He is prepped and draped in sterile fashion. Lidocaine jelly is instilled into the urethra and a suitable period of time is permitted to transpire. A flexible cystoscope is inserted retrograde evaluation and carried out confirming a normal pendulous and bulbar urethra. The external sphincter is normal. The prostatic fossa is consistent with age and nonobstructing. The bladder is entered. The stent is identified. A grasping forcep is deployed and the stent is grasped and extracted. The stent is examined and is fully intact. The procedure is terminated. The patient tolerated the procedure well
[2020-04-26] MEDS: ALBUTEROL SULFATE 2.5 MG/0.5 ML VIAL.NEB IH PRN ×2 (12:53→19:52)
[2020-04-26] MEDS: KETOROLAC TROMETHAMINE 30 MG/ML VIAL IV PRN ×2 (12:57→19:42)
[2020-04-27] MEDS: ALBUTEROL SULFATE 2.5 MG/0.5 ML VIAL.NEB IH PRN (00:48)
[2020-04-27] MEDS: ACETAMINOPHEN 1,000 MG/100 ML BTL IV SCH ×2 (01:17→07:04)
[2020-04-27] MEDS: NORMAL SALINE 1,000 ML IV PRN (05:42)
--- NOTE | 2020-04-27 08:43 | DS ---
(1) Ileus, postoperative Problem: Resolved (2) Intractable pain Problem: Resolved (3) Ureterolithiasis Problem: Resolved (4) Retained ureteral stent Problem: Resolved Date of Discharge:: 04/27/20 Hospital Course: John is a 35 yo male admitted for abdominal pain, ileus, and retained ureteral stent. Urology was consulted and stent was removed. He was made NPO and taken off narcotics and switched to tylenol and toradol. He began having bowel movements and diet was advanced. He tolerated advancement and will be discharged to home today. Procedures Performed: see notes below List Procedures: 04/26/2020 - Ureteral stent removal Results and Findings: Lab Pending Results 04/25/20 17:50: Urine Color Yellow, Urine Appearance Cloudy, Urine pH 6.0, Ur Specific [place] 1.025, Urine Protein 100 H, Urine Glucose (UA) Negative, Urine Ketones 5, Urine Blood 250 H, Urine Nitrate Negative, Urine Bilirubin 1 H, Urine Ictotest Negative, Prot Sulfosalicylic Acd 1+, Urine Urobilinogen Normal, Ur Leukocyte Esterase 75 H, Urine RBC >50 H, Urine WBC 0-5, Ur Epithelial Cells 0- 5, Urine Bacteria 1+ H, Urine Culture Comments Culture to follow 04/25/20 18:34: WBC 4.0, RBC 5.58, Hgb 16.8, Hct 51.3, MCV 91.9, MCH 30.1, MCHC 32.7, RDW 12.4, Plt Count 281, MPV 9.6, Immature Gran % (Auto) 0.50 H, Immature Gran # (Auto) 0.02, Neutrophils % 80.1 H, Lymphocytes % 15.0 L, Monocytes % 3.5, Eosinophils % 0.7, Basophils % 0.2, Nucleated RBC % 0.0, Neutrophils # 3.2, Lymphocytes # 0.60 L, Monocytes # 0.1, Eosinophils # 0.0, Absolute Basophils 0.0 04/25/20 18:34: Sodium 136, Plasma Sodium 137, Potassium 4.9 H D, Chloride 103, Carbon Dioxide 28.2, Anion Gap 9.7, BUN 21, Creatinine 1.52 H, Est GFR (Non-Af Amer) 55 L, BUN/Creatinine Ratio 13.8, Random Glucose 136 H, Calcium 9.8, Calcium Adj for Albumin 9.8, Total Bilirubin 0.7, AST 33, ALT 49, Alkaline Phosphatase 76, Total Protein 8.0, Albumin 3.6 04/26/20 00:55: SARS-CoV-2 (PCR) Not detected 04/26/20 07:48: Sodium 134, Plasma Sodium 134, Potassium 3.6 D, Chloride 101, Carbon Dioxide 23.7 L, Anion Gap 12.9, BUN 18, Creatinine 1.15, Est GFR (Non-Af Amer) 76 D, BUN/Creatinine Ratio 15.7, Random Glucose 105, Calcium 7.7 L, Calcium Adj for Albumin 8.5, Total Bilirubin 0.6, AST 24, ALT 33, Alkaline Phosphatase 66, Total Protein 6.3, Albumin 2.6 L Discharge Location: Home Disposition: Home self-care Condition: Good Discharge Activity: Activity as tolerated Discharge Diet: General/regular food Problem Oriented Discharge Instructions to Patient/Family: Ileus Complete Home Medications List: Complete Home Medication List: Albuterol Sulfate [Ventolin Hfa] 1 puff INHALATION QID PRN #1 [id number] 12/09/18 Polyethylene Glycol 3350 [Miralax] 17 gm PO DAILY PRN #510 gm 04/16/20 Acetaminophen [Ofirmev] 1,000 mg IV Q6H btl 04/27/20
[2020-04-27 08:54] VITALS: BP 132/88
== END 2020-04-27 08:50 | disposition home or self-care (01) ==
LOC: MS 17:32 → ER 17:32 → MS 04-26 02:25
PROVIDERS: ADMIT Family Medicine; ATTEND Family Medicine
DX: T19.8XXA Foreign body in other parts of genitourinary tract, initial encounter; R10.84 Generalized abdominal pain; Z72.0 Tobacco use; Z87.442 Personal history of urinary calculi; N20.1 Calculus of ureter; R31.9 Hematuria, unspecified; K56.7 Ileus, unspecified